=== PATIENT | male | born 1970 | race Caucasian/White ===

== ENCOUNTER 2022-01-19 12:01 | Outpatient (CLI) | payer SELFPAY ==
--- NOTE | 2022-01-19 12:00 | RT.EKG_ITS ---
APPROVED REPORT Exam: Resting ECG Reason for Exam: CAD Patient Location: O HR:106 bpm ECG Measurements Heart Rate 106 AXIS AR 130 P 31 QRSd 93 QRS -2 QT 315 T 27 QTc 419 Conclusion Sinus tachycardia...rate> 99 RSR' in V1 or V2, probably normal variant...small R' only Inferior infarct, old...Q >35mS, II III aVF
== END 2022-01-19 12:02 | disposition home or self-care (01) ==
LOC: DI.CARD 12:01
PROVIDERS: PCP Registered Nurse; Visit Provider Internal Medicine Cardiovascular Disease
DX: I25.10 Atherosclerotic heart disease of native coronary artery without angina pectoris (principal)
CPT/HCPCS: 93010

== ENCOUNTER 2023-12-09 08:05 | Day surgery (SDC) | payer MEDICAID, SELFPAY ==
--- NOTE | 2023-12-09 06:29 | ANES.PREOP_ITS ---
General Info Date of Service Date Performed: 12/09/23 Height: 5 ft 8 in Weight: 147.871 kg Body Mass Index (BMI): 49.6 Surgical Procedure: Operation Date: 12/09/23 10:25 Proposed Procedure Side Surgeon p Cataract Extraction with IOL Implant Right Carlos Oscar MD Meds Allergies and Home Medications Allergies Allergy/AdvReac Type Severity Reaction Status Date / Time animal dander Allergy Other (See Verified 12/09/23 08:38 Comment) Home Medication Medication Instructions Recorded albuterol sulfate 90 mcg/actuation 2 puff inhalation Q6H PRN 11/13/21 aerosol inhaler (ProAir HFA) aspirin 81 mg tablet,delayed 81 mg PO DAILY 11/13/21 release atorvastatin 80 mg tablet 80 mg PO DAILY 11/13/21 budesonide-formoterol HFA 160 2 puff inhalation BID 11/13/21 mcg-4.5 mcg/actuation aerosol inhaler (Symbicort) lisinopril 20 mg tablet 20 mg PO DAILY 11/13/21 metoprolol succinate 25 mg 25 mg PO DAILY 11/13/21 tablet,extended release 24 hr nitroglycerin 0.3 mg sublingual 0.3 mg sublingual Q5M PRN 11/13/21 tablet acetylcysteine 600 mg capsule (NAC) 600 mg PO BID 12/06/23 clopidogrel 75 mg tablet 75 mg PO DAILY 12/06/23 estradiol valerate 40 mg/mL 40 mg IM .Q1W 12/06/23 intramuscular oil spironolactone 100 mg tablet 100 mg PO BID 12/06/23 Current Visit Medications: Current Medications Generic Name Dose Route Start Last Admin Trade Name Freq PRN Reason Stop Dose Admin Acetaminophen 1,000 mg 12/09/23 06:00 Acetaminophen 500 Mg Tab PO 01/08/24 05:59 Q4H PRN PRN Balanced Salt Solution 500 ml 12/09/23 06:00 Balanced Salt Soln.-Plus 500 Ml Bag OP 01/08/24 05:59 DIRECTED LEE Miscellaneous Medication 0 ml 12/09/23 06:00 Prednisolone 1%, Moxifloxacin 0.5%, Bromfenac 0.09% 5ml Btl OD 01/08/24 05:59 DIRECTED LEE Miscellaneous Medication 0 ml 12/09/23 06:00 Tropicam./Phenyleph. (1/2.5%) 10 Ml Btl OD 01/08/24 05:59 DIRECTED [facility] Tetracaine HCl 0 ml 12/09/23 06:00 Tetracaine 0.5% 4 Ml Btl OD 01/08/24 05:59 DIRECTED [facility] PFSH Active Problems Active Problems: Problem Status Onset Code Posterior subcapsular age-related cataract, right eye H25.041 Nuclear age-related cataract, right eye H25.11 Severe obesity E66.01 Reduced libido R68.82 ZACHARY (obstructive sleep apnea) G47.33 Essential hypertension I10 Coronary arteriosclerosis I25.10 Type 2 diabetes mellitus E11.9 Impotence N52.9 Low back pain M54.50 Nocturia R35.1 Irritable bowel syndrome (IBS) K58.9 Nicotine dependence F17.200 Hyperlipidemia E78.5 Medical History Medical History (Updated 12/08/23 @ 21:22 by Carlos Oscar MD) Hx of myocardial infarction 2020 Financial difficulty Hydrocele CTS (carpal tunnel syndrome) Chronic back pain 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 Intermittent asthma Fourniers gangrene Recurrent inguinal hernia Edema of lower extremity Medical History Comments:: Transgender goes by the name: Sherry Surgical History Surgical History H/O right inguinal hernia repair History of cholecystectomy Hx of cardiac catheterization 06/30/20 Tobacco Smoking/Tobacco Use Status: Current every day Tobacco Type: cigarettes Alcohol Alcohol Intake: never Substance Use Substance use: Never Substance use type: does not use Vital Signs and Lab Results Vital Signs Most Recent Vital Signs in EMR: Temp Pulse Resp BP Pulse Ox 36.5 C 95 H 18 100/80 99 12/09/23 08:43 12/09/23 08:43 12/09/23 08:43 12/09/23 08:43 12/09/23 08:43 Lab Results Blood Type / Crossmatch: No Data to Display Complete Blood Count: No Data to Display Complete Metabolic Panel: No Data to Display Liver Function Panel: No Data to Display Coagulation Panel: No Data to Display Cardiac Panel: No Data to Display Arterial Blood Gas: No Data to Display Venous Blood Gas: No Data to Display Pancreas Panel: No Data to Display Thyroid Panel: No Data to Display Infectious Disease: No Data to Display Blood Cultures: No Data to Display Toxicology Panel: No Data to Display Imaging and Studies Imaging and Studies Study information below may be from another EMR and interpreted by another provider. Please see original notes in EMR for more complete details. EKG Summary: 02/03: sinus tach. Q II, III, aVF. Anesthesia Assessment and Plan Anesthesia History Personal History: No History of Anesthesia Complications Family History: No Family History of Anesthesia Complications Exercise Tolerance Exercise Tolerance: Metabolic Equivalents>4 Cardiac & Pulmonary Exam Cardiac Exam: Normal S1/S2 Heart Sounds Pulmonary Exam: Clear Bilateral Breath Sounds Implantable Cardiac Device Does patient have a Pacemaker or an ICD?: No Airway Exam Known Difficult Airway: No Mallampati Class: 4 Mouth Opening: Narrow (< 3cm) Thyromental Distance: Greater than 3 cm Neck Range of Motion: Full ROM and Limited ROM Neck Circumference: Thick Teeth Condition: Normal Dentition ASA Classification ASA Score: ASA 3 Emergency Case?: No NPO Status NPO Status: NPO Clears >2 hours, Solids >8 hours Anesthesia Plan Resuscitation Status: Full Code Anesthesia Technique: MAC Anesthesia Airway Planned: Natural Airway Monitors Used: Standard Monitors Preoperative Comments:: 53 yo trans female (Tammi) for cataract removal. would like MKO. Sig PMHx: CAD/DE (2020, no NTG use), DMII, ZACHARY, BMI~50, HTN, smoker.
[2023-12-09 08:43] VITALS: BP 100/80; PULSE 95; RESP 18; TEMP 36.5; O2SAT 99
[2023-12-09 08:54] VITALS: BMI 49.6
[2023-12-09] MEDS: Tetracaine 0.5% 4 ML BTL OD (10:19)
[2023-12-09] MEDS: Povidone-Iodine Ophth 30 ML BTL (10:19)
[2023-12-09] MEDS: Balanced Salt Soln.-PLUS 500 ML BAG OP (10:27)
[2023-12-09] MEDS: Duovisc Viscoelastic System EACH 1 EACH (10:27)
[2023-12-09] MEDS: Lidocaine 1% Pres-Free 5 ML VIAL (10:28)
[2023-12-09] MEDS: Trypan Blue 0.06% 0.5 ML SYR (10:33)
[2023-12-09 10:45] VITALS: BP 125/81; PULSE 80; RESP 16; TEMP 36; O2SAT 100
--- NOTE | 2023-12-09 10:45 | W.PM.DSUDISC ---
Date of service: 12/09/23 Time of Service: 10:46 Discharge Plan Disposition Patient Disposition: Home Discharge Details Attending Provider: Carlos Oscar Primary Care Provider: MINDY JURADO Home Meds and New Rx's Prescriptions: No Action aspirin 81 mg tablet,delayed release (DR/EC) 81 mg PO DAILY atorvastatin 80 mg tablet 80 mg PO DAILY lisinopril 20 mg tablet 20 mg PO DAILY metoprolol succinate 25 mg tablet extended release 24 hr 25 mg PO DAILY nitroglycerin 0.3 mg tablet, sublingual 0.3 mg sublingual Q5M PRN Rx Instructions: do not exceed 3 doses per episode albuterol sulfate [ProAir HFA] 90 mcg/actuation HFA aerosol inhaler 2 puff inhalation Q6H PRN budesonide-formoterol [Symbicort] 160-4.5 mcg/actuation HFA aerosol inhaler 2 puff inhalation BID clopidogrel 75 mg tablet 75 mg PO DAILY Patient Comments: TAKE ONE TABLET BY MOUTH EVERY DAY acetylcysteine [NAC] 600 mg capsule 600 mg PO BID spironolactone 100 mg tablet 100 mg PO BID Patient Comments: TAKE ONE TABLET BY MOUTH EVERY DAY estradiol valerate 40 mg/mL oil 40 mg IM .Q1W Discharge Instructions Stand Alone Forms: DSU Post-Op CataractStephanie (DSU) Discharge Orders Discharge Orders: Discharge Order (Routine); Ordered 12/09/23 Ordered By: Carlos Oscar DS: Diagnosis Discharge Diagnosis (1) Posterior subcapsular age-related cataract, right eye: Status: Resolved (2) Nuclear age-related cataract, right eye: Status: Resolved
--- NOTE | 2023-12-09 10:46 | ROE_ITS ---
Date of service: 12/09/23 Time of Service: 10:48 Operative Note Operative Note DATE OF PROCEDURE: 12/09/23 PRE-OP DIAGNOSIS: Nuclear/posterior subcapsular cataract, right eye POST-OP DIAGNOSIS: same PROCEDURE: Cataract extraction using phacoemulsification with intraocular lens implant, right eye SURGEON: Carlos Oscar ANESTHESIA TYPE: Local By Surgeon and MAC Refer to Anesthesia Record ESTIMATED BLOOD LOSS: 0 PATHOLOGY: none sent COMPLICATIONS: None Patient was transported to: same day Patient's condition: stable Implants: Black & Black Tecnis Eyhance [id number] Indications: Progressive visual loss due to cataract, right eye Procedure Description: CATARACT SURGERY OPERATIVE REPORT PREOPERATIVE DIAGNOSIS: 1. Nuclear/posterior subcapsular cataract, right eye POSTOPERATIVE DIAGNOSIS: Same OPERATION: 1. Cataract extraction using phacoemulsification with posterior chamber intraocular lens implant, right eye. IOL: IOL Reprint Sorter/Model: Black & Black Tecnis Eyhance DIB00 IOL Power: + 14.5 diopters IOL Serial Number: [id number] Optic Diameter: 6.0mm Haptic/Overall Diameter: 13.0mm PHACO INFO: Evens [employer] Bradsbyurion Vision System with OZil and Active Fluidics Cumulative Dispersed Energy (CDE): 4.82 seconds SURGEON: Carlos Oscar MD, JACOBO ANESTHESIA: Monitored Anesthesia Care (MAC), with local sub-tenon's anesthetic infiltration COMPLICATIONS: None SPECIMENS: None INDICATIONS FOR PROCEDURE: The patient is a 53-year-old individual with history of progressive decreased vision in the right eye. The patient is noted to have a dense nuclear/posterior subcapsular cataract with severe glare disability. The option of cataract surgery was offered to the patient and the patient wished to proceed. See office notes for detailed information. PROCEDURE: The correct surgical eye was identified and marked as the right eye and the pupil was dilated in the preoperative area using mydriatics and cycloplegics. The dilated pupil size was 7.0 mm. Oral sedation was administered in the form of an Imprimis MKO Melt (midazolam 3mg/ketamine 25mg/ondansetron 2mg). The patient was brought to the operating room where cardiopulmonary monitoring was instituted and surgical time-out was performed, confirming the correct operative eye and IOL power. Topical anesthesia was administered and ophthalmic povidone-iodine 5% was instilled into the conjunctival fornices. The tono-ocular area was prepped with Betadine 10% solution and draped in the usual sterile fashion for intraocular surgery, including an aperture drape. A Tegaderm transparent film dressing was cut in half and used to cover the lashes and lid margins. Care was taken to sequester the lashes and lid margins under the Tegaderm dressing. A lid speculum was placed between the lids of the operative eye and the Evens LuxOR Revalia operating microscope was maneuvered into position. Nan scissors were then used to make a conjunctival buttonhole approximately 6mm posterior to the limbus in the inferonasal quadrant. Blunt dissection was carried out to expose bare sclera, and a blunt-tipped sub-tenon?s anesthesia cannula was introduced and passed posteriorly along the globe where non- preserved plain lidocaine was injected into posterior sub-Tenon?s space. A sideport knife was used to make a paracentesis port. VisionBlue was injected into the anterior chamber and allowed to sit for 30 seconds. Intraocular phenylephrine/lidocaine was injected into the anterior chamber. The anterior chamber was filled with viscoelastic. A keratome knife was used to construct a 2-plane clear corneal tunnel extending 2.0mm into clear cornea. A flap was raised on the anterior capsule and capsulorhexis forceps were used to complete a continuous curvilinear capsulorhexis of 5.5 mm. Balanced salt solution was then used to perform cortical cleaving hydrodissection and nuclear hydrodelineation until the lens could be freely rotated within the capsular bag. The lens nucleus was then disassembled and removed within the capsular bag and iris plane using phacoemulsification. Residual cortical material was removed using the I/A handpiece. The posterior capsule was carefully polished to remove as much residual lens epithelial cells as safely possible. The capsular bag was then inflated and the anterior chamber deepened with cohesive viscoelastic. The lens implant described above was inserted into the capsular bag using the Black and Gregorio Simplicity pre- loaded injector. A Kuglen hook was used to dial the IOL into position. Residual viscoelastic was then removed first from posterior to the IOL, then from the anterior chamber using the I/A handpiece. The lens implant was noted to center nicely within the capsular bag. The incisions were stromally hydrated, and the anterior chamber was reformed using BSS. Then 0.5cc of moxifloxacin 1.0mg/ml were injected into the capsular bag and anterior chamber. The incisions were checked with a Weck spear and found to be secure. Several drops of ophthalmic povidone-iodine 5% were then applied to the eye followed by two drops ocombination steroid/NSAID/antibiotic solution. The drapes were removed and a clear plastic protective eye shield was placed over the eye. The patient was then returned to Same Day Surgery in stable condition.
--- NOTE | 2023-12-09 10:51 | W.ANESPOSTOP ---
Postoperative Evaluation Date, Time and Location Date Performed: 12/09/23 Time Performed: 10:52 Patient Location: Day Surgery Unit Vital Signs Most Recent Imported Vital Signs: Most Recent Vital Signs Temp Pulse Resp BP Pulse Ox 36 C L 80 16 125/81 100 12/09/23 10:45 12/09/23 10:45 12/09/23 10:45 12/09/23 10:45 12/09/23 10:45 Pain Score Most Recent Pain Score: Most Recent Pain Score Pain Level 0 12/09/23 10:45 Assessment Mental Status: Awake (Alert & Oriented to Patient Baseline) Airway and Respiratory Function: Patent airway with normal (patient baseline) respiratory exam Cardiovascular Function: Hemodynamically Stable Hydration Status: Adequately Hydrated Nausea & Vomiting: No Nausea or Vomiting Pain: Pt. Denies Any Pain Peripheral Nerve Block: Patient did not receive a nerve block
[2023-12-09 11:19] VITALS: BP 107/60; PULSE 80; RESP 16; TEMP 36.1; O2SAT 97
== END 2023-12-09 11:28 | disposition home or self-care (01) ==
LOC: SUR 08:06
PROVIDERS: PCP Registered Nurse; Visit Provider Ophthalmology
PROC: (CPT 66984; principal; 2023-12-09 10:15)
DX: H25.041 Posterior subcapsular polar age-related cataract, right eye (principal); H25.11 Age-related nuclear cataract, right eye; F17.210 Nicotine dependence, cigarettes, uncomplicated; E11.9 Type 2 diabetes mellitus without complications; I25.2 Old myocardial infarction; G47.33 Obstructive sleep apnea (adult) (pediatric); E78.5 Hyperlipidemia, unspecified; I10 Essential (primary) hypertension; Z68.43 Body mass index [BMI] 50.0-59.9, adult
CPT/HCPCS: 66984; 00123; V2632; J2003

== ENCOUNTER 2024-12-10 15:32 | Outpatient (REF) | payer MEDICAID, SELFPAY | END 2024-12-10 15:33 | disposition home or self-care (01) | LOC: NCHCN 15:32 | PROVIDERS: PCP Registered Nurse; Visit Provider Nurse Practitioner Family | DX: J02.9 Acute pharyngitis, unspecified (principal) | CPT/HCPCS: 87070 ==

== ENCOUNTER 2024-12-31 13:25 | Outpatient (REF) | payer MEDICAID, SELFPAY ==
[2024-12-31 20:01] LABS: ALT 30 U/L (16-63); AST 23 U/L (15-37); Albumin 3.1 g/dL (3.4-5.0); Alkaline Phosphatase 81 U/L (46-116); Anion Gap 7.3 mmol/L (3-11); BUN 12 mg/dL (7-18); Bilirubin, Total 0.3 mg/dL (0.2-1.0); CO2 26.7 mmol/L (21.0-32.0); CREATININE 0.9 mg/dL (0.70-1.30); Calcium 9.6 mg/dL (8.5-10.1); Chloride 103 mmol/L (98-107); Estimated GFR 100.24 (mL/min/1.73m2); Glucose 113 mg/dL (74-106); Potassium 4.6 mmol/L (3.5-5.1); Sodium 137 mmol/L (136-145)
== END 2024-12-31 13:26 | disposition home or self-care (01) ==
LOC: NCHCN 13:25
PROVIDERS: PCP Registered Nurse; Visit Provider Nurse Practitioner Family
DX: R60.0 Localized edema (principal)
CPT/HCPCS: 80053

== ENCOUNTER 2025-02-20 02:39 | Outpatient (CLI) | payer MEDICAID, SELFPAY ==
--- NOTE | 2025-02-20 14:27 | DI.US_ITS ---
APPROVED REPORT EXAM: Comprehensive 2D, Doppler, and color-flow Echocardiogram Patient Location: Out-Patient Tricot Knitter: Sunni Graf RDCS (AE) Indications: Bilateral lower extremity edema Other Information Study Quality: Fair. Technically limited study due to body habitus. Conclusion Normal left ventricular wall thickness and chamber size. Ejection fraction is 55 to 60%. Wall motion is normal Normal right ventricular size and function Both atria are normal in size There is no structural or hemodynamically significant valvular disease Estimated right ventricular systolic pressure is normal at 26 mmHg Wall motion Left Ventricle The left ventricle is normal size. The left ventricular systolic function is normal. The left ventricular ejection fraction is within the normal range. There is normal left ventricular wall thickness. There is normal LV segmental wall motion. There is no ventricular septal defect visualized. LVEF is 55%. Right Ventricle The right ventricle is normal size. The right ventricular systolic function is normal. Atria The left atrium size is normal. The right atrium size is normal. The interatrial septum is intact with no evidence for an atrial septal defect. Aortic Valve The aortic valve is normal in structure. Aortic valve is trileaflet. There is no aortic valvular stenosis. No aortic regurgitation is present. Mitral Valve The mitral valve is normal in structure. No evidence of mitral valve stenosis. Trace mitral regurgitation. Tricuspid Valve The tricuspid valve is normal in structure. There is no tricuspid valve stenosis. Trace tricuspid regurgitation. The RVSP is 25.9 mmHg. Pulmonic Valve The pulmonary valve is normal in structure. There is no pulmonic valvular stenosis. There is no pulmonic valvular regurgitation. Great Vessels The aortic root is normal in size. The ascending aorta is normal in size. Aortic arch is not well visualized. IVC is normal in size and collapses >50% with inspiration. Pericardium There is no pericardial effusion. 2D Dimensions IVSD d PLAX 1.10 cm M: 0.6-1.2 Ao Root d 3.11 cm M: 3.1 - 3.7 LVPW d PLAX 1.14 cm M: 0.6 - 1.2 Ao Asc Diam d 3.21 cm M: 2.6 - 3.4 LVID d PLAX 4.60 cm M: 4.2 - 5.8 LVDs 3.30 cm M: 2.5 - 4.0 LV EF Teichholz 55.1 % FS 28.57 % LV EDV (Teich) 97.0 mL LV ESV (Teich) 43.5 mL M-Mode TAPSE 2.20 cm (M/F) >1.7 Auto EF LV EDV A4C 118.1 mL LV EDV A2C 128.4 mL LV EDV BP 122.7 mL LV ESV A4C 54.7 mL LV ESV A2C 63.5 mL LV ESV BP 58.3 mL LVEF(%) A4C 53.7 % LVEF(%) A2C 50.5 % LVEF(%) BP 52.5 % LV SV A4C 63.5 ml LV SV A2C 64.9 ml LV SV BP 64.4 ml LV CO A4C 4.8 L/min LV CO A2C 4.9 L/min LV CO BP 4.8 L/min HR A4C 75.95 BPM HR A2C 74.81 BPM LV EDV Index (BP) LA Volume LA Length A4C 4.8 cm LA Length A2C 4.8 cm LA Area A4C s 17.04 cm2 LA Area A2C s 15.12 cm2 LA Vol A4C A-L 51.42 mL LA Vol A2C A-L 40.52 mL LA Vol Biplane A-L 45.7 mL LA Vol/BSA A4C A-L LA Vol/BSA A2C A-L LA Vol/BSA BP A-L 16.9 mL/m2 LA Vol A4C MOD 48.0 mL LA Vol A2C MOD 37.4 mL LA Vol BP MOD 42.3 mL RA Volume RA Area A4C 13.6 cm2 RA ESV A4C (A-L) 37.1mL RA Vol/BSA A4C A-L RA Length A4C 4.2 cm RA ESV A4C (MOD) 35.2mL LV Diastology MV E' medial 0.113 (>0.07 m/s) MV E Vmax 0.73 (0.4-1.3 m/s) MV E/E' MED 6.50 (<14) MV A Vmax 0.85 (0.4-1.3 m/s) MV E' lateral 0.133 (>0.1 m/s) E/A Ratio 0.9 MV E/E' LAT 5.51 (<14) MV E' Average 0.123 m/s MV E/E'(average) 5.97 Aortic Valve AoV Vmax 1.06 m/s LVOT Vmax 0.98 m/s AoV Peak Grad 4.5 mmHg LVOT Peak Grad 3.8 mmHg AoV Area (Vmax) 3.38 cm2 LVOT VTI 0.229 m AoV VTI 0.267 m LVOT Mean Grad 2.1 mmHg AoV Mean Brandon. 0.80 m/s LVOT SV 83.92 mL AoV Mean Grad 2.8 mmHg LVOT Diam s 2.15 cm AoV Area (VTI) 3.14 cm2 AV Regurg Peak Gr. 4.49 mmHg Velocity Ratio 0.92 Mitral Valve MV DT 190 (160-240 msec) MV Vmax TIPS 0.72 m/s MV Mean Grad 1.1 (<2mmHg) MV VTI 0.234 m Pulmonary Valve PV Vmax 0.84 (0.5-1.5 m/s) RVOT Vmax 0.76 m/s PV Peak Grad 2.8 mmHg RVOT Peak Gr. 2.3 mmHg PV Mean Brandon 0.60 m/s RVOT VTI 0.187 m PV Mean Grad 1.6 mmHg RVOT Mean Gr. 1.4 mmHg Tricuspid Valve RA Pressure 3.00 mmHg TR Vmax 2.39 m/s TV S' 0.15 m/s TR Peak Grad 22.8 mmHg RVSP (TR) 25.9 mmHg
== END 2025-02-20 02:59 ==
PROVIDERS: PCP Nurse Practitioner Family; Visit Provider Nurse Practitioner Family
DX: R60.0 Localized edema (principal)
CPT/HCPCS: 93306

== ENCOUNTER 2025-03-05 08:12 | Outpatient (CLI) | payer MEDICAID, SELFPAY ==
--- NOTE | 2025-03-05 08:00 | RT.EKG_ITS ---
APPROVED REPORT Exam: Resting ECG Reason for Exam: ascvd Patient Location: O HR:101 bpm ECG Measurements Heart Rate [address] 137 P 37 QRSd 102 QRS -3 QT 368 T 27 QTc 477 Conclusion Sinus tachycardia...rate> 99 Ventricular premature complex...V complex w/ short R-R interval Inferior infarct, old...Q >35mS, II III aVF
== END 2025-03-05 08:13 | disposition home or self-care (01) ==
LOC: DI.CARD 08:12
PROVIDERS: PCP Nurse Practitioner Family; Visit Provider Internal Medicine Cardiovascular Disease
DX: I25.10 Atherosclerotic heart disease of native coronary artery without angina pectoris (principal); I21.9 Acute myocardial infarction, unspecified; I10 Essential (primary) hypertension
CPT/HCPCS: 93010